=== PATIENT | female | born 1940 | race Caucasian/White ===

== ENCOUNTER 2020-04-27 14:29 | Emergency (ER) | payer MEDICARE ==
[~2020-04-27] VITALS: Ht 162.6 cm; Wt 56.8 kg
[2020-04-27] MEDS ORDERED: dexamethasone 4mg tablet PO ONE (14:35)
[2020-04-27] MEDS ORDERED: acetaminophen 325mg tablet PO ONE (14:50)
[2020-04-27 15:20] LABS: BASOPHILS % (AUTO) 0.2 % (0-1); EOSINOPHILS % (AUTO) 0 % (0-6); HEMOGLOBIN 13.2 g/dl (12.0-16.0); LYMPHOCYTES # (AUTO) 0.4 X10'3 (1.1-4.8); LYMPHOCYTES % (AUTO) 5.8 % (21-51); MEAN CORPUSCULAR HEMOGLOBIN 30.4 PG (27.0-31.0); MEAN CORPUSCULAR HGB CONC 34.6 g/dL (33.0-36.5); MEAN CORPUSCULAR VOLUME 87.9 FL (78-98); MEAN PLATELET VOLUME 7.4 FL (7.4-10.4); MONOCYTES # (AUTO) 0.8 X10'3 (0-0.9); MONOCYTES % (AUTO) 11.2 % (2-12); NEUTROPHILS # (AUTO) 6.1 X10'3 (1.8-7.7); NEUTROPHILS % (AUTO) 82.8 % (42-75); PLATELET COUNT 190 X10'3 (140-440); RED BLOOD COUNT 4.33 X10'6 (4.20-5.60); RED CELL DISTRIBUTION WIDTH 13.7 % (11.5-14.5); WHITE BLOOD COUNT 7.4 X10'3 (4.5-11.0)
[2020-04-27 15:36] LABS: ALANINE AMINOTRANSFERASE 17 U/L (12-78); ALBUMIN 3.2 G/DL (3.4-5.0); ALBUMIN/GLOBULIN RATIO 0.6 (1.1-1.5); ALKALINE PHOSPHATASE 78 IU/L (46-116); ANION GAP 9 (8-16); ASPARTATE AMINO TRANSFERASE 13 U/L (10-37); BILIRUBIN,TOTAL 0.9 MG/DL (0.1-1.0); BLOOD UREA NITROGEN 12 MG/DL (7-18); BUN/CREATININE RATIO 12.4 (6.6-38.0); CALCIUM 9.1 MG/DL (8.5-10.1); CHLORIDE 94 MMOL/L (99-107); CREATININE 0.97 MG/DL (0.40-0.90); SODIUM 130 MMOL/L (135-145); TOTAL CARBON DIOXIDE 26.6 MMOL/L (24-32); TOTAL PROTEIN 8.4 G/DL (6.4-8.2); eGFR 56 ML/MIN
[2020-04-27 15:40] LABS: GLUCOSE 350 MG/DL (70-104)
[2020-04-27 15:49] LABS: C-REACTIVE PROTEIN 3.53 MG/DL (0.0-0.5); FERRITIN 132 NG/ML (8-252); LACTATE DEHYDROGENASE 180 U/L (81-234); MAGNESIUM 1.7 MG/DL (1.5-2.4)
[2020-04-27] MEDS ORDERED: DOXY100C43 PO (16:03)
[2020-04-27] MEDS ORDERED: PRED20TA PO (16:03)
[2020-04-27] MEDS ORDERED: ALBU8HFA PO (16:03)
[2020-04-27 16:37] VITALS: BP 108/62
[2020-04-27 16:40] LABS: CLARITY,URINE CLOUDY (Clear); COLOR,URINE STRAW (Yellow); GLUCOSE, URINE >=1000 mg/dl (Neg); KETONES,URINE NEGATIVE (Neg); LEUKOCYTE ESTERASE ,URINE TRACE (Neg); NITRITES, URINE NEGATIVE (Neg); OCCULT BLOOD,URINE TRACE-LYSED (Neg); PROTEIN,URINE NEGATIVE (Neg); UROBILINOGEN,URINE 0.2 E.U/dL (0.2-1.0)
[2020-04-27 16:44] LABS: UA COLLECTION TYPE CLN CATCH MIDSTREAM
[2020-04-27 16:50] LABS: BACTERIA,URINE 4+ /HPF (Neg); MUCUS STRANDS NONE SEEN /LPF (Neg); RBC,URINE 0-2 /HPF (0-2); SQUAMOUS EPITHELIAL CELL,UR NONE SEEN /LPF (FEW); WBC CLUMPS,URINE MODERATE /HPF (NEGATIVE); WBC,URINE TNTC /HPF (0-4)
== END 2020-04-27 17:32 | disposition home or self-care (01) ==
LOC: ER 14:30
DX: J44.1 Chronic obstructive pulmonary disease with (acute) exacerbation (principal); N28.9 Disorder of kidney and ureter, unspecified; Z20.828 Contact with and (suspected) exposure to other viral communicable diseases; N39.0 Urinary tract infection, site not specified; R79.0 Abnormal level of blood mineral; F17.200 Nicotine dependence, unspecified, uncomplicated; Z79.899 Other long term (current) drug therapy
CPT/HCPCS: 36415; 71045; 80053; 81001; 82728; 83605; 83615; 83735; 84145; 85025; 85384; 86140; 87040; 87088; 87635; 93005; 99285; C9803

== ENCOUNTER 2020-09-30 13:23 | Emergency (ER) | payer MEDICARE ==
[~2020-09-30] VITALS: Ht 165.1 cm; Wt 51.0 kg
[2020-09-30 13:35] VITALS: BP 126/66
== END 2020-09-30 17:21 | disposition left against medical advice (07) ==
LOC: ER 13:24
DX: K59.00 Constipation, unspecified (principal); Z53.21 Procedure and treatment not carried out due to patient leaving prior to being seen by health care provider

== ENCOUNTER 2021-02-22 15:55 | Emergency (ER) | payer MEDICARE, OTHER ==
[~2021-02-22] VITALS: Ht 162.6 cm; Wt 52.0 kg
[~2021-02-22 15:55] MED LIST: ALBU18HF2 INH; BUDE10.2 IH; CALC1CAP21 PO; CHOL20004 PO; DAPA10TA PO; FAMO40TA8 PO; LINA5TAB4 PO; METF-900 PO; MULT-384 PO; OMEG1CAP46 PO; PRAV10TA39 PO
[2021-02-22 16:10] VITALS: BP 164/80
[2021-02-22] MEDS ORDERED: DOXYCYCLINE 100MG CAPSULE PO STA (16:14)
== END 2021-02-22 17:23 | disposition home or self-care (01) ==
LOC: ER 15:55
DX: S40.262A Insect bite (nonvenomous) of left shoulder, initial encounter (principal); J44.9 Chronic obstructive pulmonary disease, unspecified; E11.9 Type 2 diabetes mellitus without complications; M06.9 Rheumatoid arthritis, unspecified; Z79.899 Other long term (current) drug therapy; W57.XXXA Bitten or stung by nonvenomous insect and other nonvenomous arthropods, initial encounter
CPT/HCPCS: 99283